=== PATIENT | male | born 2000 | race Two or more races ===

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

== ENCOUNTER 2018-01-11 01:33 | Emergency (ER) | payer MEDICAID, OTHER ==
[~2018-01-11] VITALS: Ht 177.8 cm; Wt 103.7 kg
[2018-01-11 01:57] VITALS: BP 139/87
== END 2018-01-11 03:07 | disposition left against medical advice (07) ==
LOC: ER 01:33
DX: R07.9 Chest pain, unspecified (principal); Z53.21 Procedure and treatment not carried out due to patient leaving prior to being seen by health care provider
CPT/HCPCS: 93005

== ENCOUNTER 2019-02-03 00:17 | Emergency (ER) | payer MEDICAID | END 2019-02-03 02:35 | disposition left against medical advice (07) | LOC: ER 00:17 | DX: R06.2 Wheezing (principal); Z53.21 Procedure and treatment not carried out due to patient leaving prior to being seen by health care provider ==